=== PATIENT | female | born 1995 | race Caucasian/White ===

== ENCOUNTER 2018-10-14 09:16 | Emergency (ER) | payer BC, OTHER ==
[2018-10-14 09:19] VITALS: BP 131/85; PULSE 62; RESP 18; TEMP 98.4
--- NOTE | 2018-10-14 09:59 | XR ---
EXAMINATION TYPE: XR soft tissue neck DATE OF EXAM: 10/14/2018 COMPARISON: NONE HISTORY: Throat tightness that is worsening TECHNIQUE: Fundal and lateral views of the soft tissues of the neck FINDINGS: There is no prevertebral soft tissue swelling. Epiglottis and adenoids tissue is within nor mal limits. The supraglottic and infraglottic airway is maintained. Nasopharyngeal airway is maintain ed. Cervical spine vertebral bodies maintain normal vertebral body heights. Utilized portions of the upper lungs are unremarkable. No radiopaque foreign body in the course of the visualized esophagus or airway. IMPRESSION: Unremarkable soft tissue neck radiographs.
--- NOTE | 2018-10-14 10:30 | ED ---
General Adult HPI - General Chief complaint: ENT Stated complaint: Throat tightness Time Seen by Provider: 10/14/18 09:24 Source: patient, RN notes reviewed Mode of arrival: ambulatory Limitations: no limitations - History of Present Illness Initial comments: 23-year-old female presents to the emergency department for a chief complaint of sensation of intermittent throat pain and tightness. Patient states that over the past several weeks she has had episodes lasting several minutes where she feels like her throat is somewhat tight. Patient denies any respiratory distress whatsoever during these episodes. States her tongue also feels dry at times. Patient denies any difficulty swallowing solids or liquids. States that twice in the past few weeks she has felt lightheaded as well however at this time feels fine. Patient denies any fevers or chills. Denies any dental pain. Denies any difficulty eating. Patient has no other complaints at this time including shortness of breath, chest pain, abdominal pain, nausea or vomiting, headache, or visual changes. - Related Data Home Medications Medication Instructions Recorded Confirmed Cyanocobalamin [Vitamin B-12] 500 mcg PO DAILY 10/14/18 10/14/18 L.acidoph,Paracasei, B.lactis 1 cap PO DAILY 10/14/18 10/14/18 [Probiotic] Multivitamins, Thera [Multivitamin 1 tab PO DAILY 10/14/18 10/14/18 (formulary)] Tri-Linyah Control 1 tab PO HS 10/14/18 10/14/18 diphenhydrAMINE HCL [Benadryl] 50 mg PO ONCE PRN 10/14/18 10/14/18 Allergies Allergy/AdvReac Type Severity Reaction Status Date / Time cefprozil [From Cefzil] Allergy Rash/Hives Verified 10/14/18 09:24 Review of Systems ROS Statement: Those systems with pertinent positive or pertinent negative responses have been documented in the HPI. ROS Other: All systems not noted in ROS Statement are negative. Past Medical History Past Medical History: No Reported History History of Any Multi-Drug Resistant Organisms: None Reported Past Surgical History: Adenoidectomy Past Psychological History: No Psychological Hx Reported Smoking Status: Former smoker Past Alcohol Use History: Occasional Past Drug Use History: None Reported General Exam Limitations: no limitations General appearance: alert, in no apparent distress Head exam: Present: atraumatic, normocephalic, normal inspection Eye exam: Present: normal appearance, PERRL, EOMI. Absent: scleral icterus, conjunctival injection, periorbital swelling ENT exam: Present: normal exam, normal oropharynx (Uvula midline, no tonsillar exudates noted bilaterally. Patient does have mild postnasal drip noted.), mucous membranes moist (mucous membranes moist, tongue appears normal.), TM's normal bilaterally, normal external ear exam Neck exam: Present: normal inspection, full ROM. Absent: tenderness, meningismus, lymphadenopathy Respiratory exam: Present: normal lung sounds bilaterally. Absent: respiratory distress, wheezes, rales, rhonchi, stridor Cardiovascular Exam: Present: regular rate, normal rhythm, normal heart sounds. Absent: systolic murmur, diastolic murmur, rubs, gallop, clicks GI/Abdominal exam: Present: soft, normal bowel sounds. Absent: distended, tenderness, guarding, rebound, rigid Neurological exam: Present: alert, oriented X3, CN II-XII intact Psychiatric exam: Present: normal affect, normal mood Course Vital Signs 10/14/18 09:17 Temperature 98.4 F Pulse Rate 62 Respiratory 18 Rate Blood Pressure 131/85 O2 Sat by Pulse 99 Oximetry Medical Decision Making - Medical Decision Making 23-year-old female presents to the emergency department for a chief complaint of intermittent tightness in throat for several weeks. States this comes and goes. Denies any respiratory distress when this occurs. Denies any swelling of the lips or tongue but does state her tongue feels dry. Denies any difficulty swallowing solids or liquids. On exam oropharynx is patent. Uvula is midline. No tonsillar exudates. There is postnasal drip noted. Strep was negative. Soft tissue neck x-ray was obtained which was unremarkable. Epiglottis and adenoids are within normal limits. Airway is maintained. Discussed this with patient and her parents. At this time patient is stable for outpatient follow- up. However do recommend following up tomorrow with family doctor. Patient may need referral to a specialist for direct visualization by scope if this does not improve. Also discussed possibility of anxiety causing this because patient is anxious with this occurs. He will return if patient has any worsening symptoms, difficulty breathing, or difficulty swallowing solids or liquids. - Lab Data Lab Results 10/14/18 Range/Units 09:30 Group A Strep Rapid Negative (Negative) Disposition Clinical Impression: Pharyngitis Disposition: HOME SELF-CARE Condition: Good Instructions (If sedation given, give patient instructions): Pharyngitis (ED) Additional Instructions: Please follow up with primary care in 1-2 days. Please return to the emergency department if you have any worsening symptoms or are unable to swallow solids or liquids. Is patient prescribed a controlled substance at d/c from ED?: No Referrals: Gary West MD [Primary Care Provider] - 1-2 days Time of Disposition: 10:31
== END 2018-10-14 10:44 | disposition home or self-care (01) ==
LOC: EC 09:16
DX: J02.9 Acute pharyngitis, unspecified (principal); Z79.3 Long term (current) use of hormonal contraceptives; Z88.1 Allergy status to other antibiotic agents; Z87.891 Personal history of nicotine dependence
CPT/HCPCS: 70360; 87081; 87430; 99283

== ENCOUNTER → 2018-12-11 | Outpatient (CLI) | payer OTHER ==
--- NOTE | 2018-12-11 08:08 | US ---
EXAMINATION TYPE: US thyroid st tissue head/neck DATE OF EXAM: 12/11/2018 COMPARISON: NONE CLINICAL HISTORY: I88.9 Nonspecific lymphadenitis, unspecified. lymph nodes swell in neck, on and off , and can be tender, recently going through sinus infections TECHNIQUE/FINDINGS: Targeted ultrasound was performed of the areas of the palpable abnormalities in t he right and left neck. Corresponding the palpable abnormalities there are morphologically normal appearing lymph nodes bilat erally with fatty hilum and minimal vascularity. Largest on the right = 1.2 x 1.1 x 0.6cm Largest on the right = 0.8 x 0.6 x 0.2cm IMPRESSION: Morphologically normal-appearing nonenlarged bilateral cervical chain lymph nodes.
== END | disposition home or self-care (01) ==
LOC: RADUSWWP 07:30
PROVIDERS: ATTEND Family Medicine
DX: I88.9 Nonspecific lymphadenitis, unspecified (principal)
CPT/HCPCS: 76536

== ENCOUNTER → 2018-12-24 | Outpatient (CLI) | payer OTHER ==
--- NOTE | 2018-12-24 09:57 | MM ---
Reason for exam: clinical finding. Baseline mammogram. History: Patient is nulliparous. Taking hormonal contraceptives for 4 years beginning at age 19. Indicated problem(s): lump or thickening in the left breast. Physical Findings: Nurse Summary: Patient complains of left breast lump x 2 weeks with pain (nurse irene). MG 3D Diag Mammo W/Cad LT CC and MLO view(s) were taken of the left breast. The breast tissue is extremely dense which could obscure a lesion on mammography. These results were verbally communicated with the patient and result sheet given to the patient on 12/24/18. ASSESSMENT: Benign, BI-RAD 2 RECOMMENDATION: Routine screening mammogram of both breasts at age 40. Manage patient on a clinical basis.
--- NOTE | 2018-12-24 09:58 | USB ---
Reason for exam: clinical finding. History: Patient is nulliparous. Taking hormonal contraceptives for 4 years beginning at age 19. Indicated problem(s): lump or thickening in the left breast. Physical Findings: Nurse Summary: Patient complains of left breast lump x 2 weeks with pain (nurse mj). US Breast LT Left complete breast ultrasound includes all four quadrants, the retroareolar region and axilla. Finding demonstrates no cystic or solid lesion seen. Dense tissue. These results were verbally communicated with the patient and result sheet given to the patient on 12/24/18. ASSESSMENT: Incomplete: need additional imaging evaluation, BI-RAD 0 RECOMMENDATION: Follow-up diagnostic mammogram of the left breast.
== END | disposition home or self-care (01) ==
LOC: RADMAMWWP 08:48
PROVIDERS: ATTEND Family Medicine
DX: N63.20 Unspecified lump in the left breast, unspecified quadrant (principal)
CPT/HCPCS: 77061; 77065

== ENCOUNTER 2020-05-14 07:07 | Day surgery (SDC) | payer BC, OTHER ==
[2020-05-11 12:28] VITALS: BMI 25.0
[2020-05-14 07:28] VITALS: TEMP 97.9
[2020-05-14] MEDS: LACTATED RINGERS 1,000 ML IV SCH ×2 (07:48→07:59)
[2020-05-14] MEDS ORDERED: MIDAZOLAM 2 MG/2 ML VIAL ONE (08:00)
[2020-05-14] MEDS ORDERED: fentaNYL (PF) 50 MCG/ML 2 ML AMP ONE (08:00)
[2020-05-14] MEDS ORDERED: PROPOFOL 10 MG/ML 20 ML VIAL IV ONE (08:00)
--- NOTE | 2020-05-14 08:14 | P.PCN ---
Date of Procedure: 05/14/20 Procedure(s) Performed: BRIEF HISTORY: Patient is a 24-year-old, pleasant, white female scheduled for an upper endoscopy as a part of evaluation of long-standing history of chest tightness, intermittent dysphagia to solids and excessive burping and belching for the last 2 years duration. She has been on omeprazole 20 mg daily for one year with no help.. PROCEDURE PERFORMED: Esophagogastroduodenoscopy with biopsy. PREOPERATIVE DIAGNOSIS: Chest tightness/dysphagia/excessive belching IV sedation per anesthesia. PROCEDURE: After informed consent was obtained, the patient was brought into the endoscopy unit. IV sedation was administered by Anesthesia under continuous monitoring. Initially the Olympus GIF-140 video endoscope was inserted into the mouth. Esophagus intubated without any difficulty. It was gradually advanced into the stomach and duodenum and carefully examined. The bulb and the second part of the duodenum appeared normal. The scope at this time was withdrawn to the stomach, adequately insufflated with air, and upon careful examination, mucosa of the antrum, had mild gastritis and biopsies were done from this area. The body, cardia and the fundus appeared normal. The scope was then withdrawn into the esophagus. The GE junction was located at 39 cm from the incisors. The esophagus appeared normal. There were no erosions or ulcerations seen , biopsies were done from the mid and distal esophagus and the patient tolerated the procedure well. IMPRESSION: 1. Mild antral gastritis. 2. Normal-appearing esophagus with no evidence of esophagitis or esophageal stricture. RECOMMENDATIONS: The findings of this examination were discussed with the patient as well as a family. She was advised to follow with the biopsy results. She'll continue with omeprazole 20 mg twice daily for 6 weeks and follow antireflux measures. If she still remains symptomatic despite this approach she was advised to follow up in office for further workup..
[2020-05-14 08:15] VITALS: RESP 16
[2020-05-14 08:30] VITALS: BP 105/61; PULSE 60
== END 2020-05-14 08:48 | disposition home or self-care (01) ==
LOC: ORWHC2ENDO 07:07
PROVIDERS: ATTEND Internal Medicine Gastroenterology
DX: K29.50 Unspecified chronic gastritis without bleeding (principal); R13.10 Dysphagia, unspecified; K21.9 Gastro-esophageal reflux disease without esophagitis; Z79.899 Other long term (current) drug therapy
CPT/HCPCS: 81025; 88305; 43239; J2250; J3010; J2704

== ENCOUNTER → 2020-10-12 | Outpatient (CLI) | payer BC ==
--- NOTE | 2020-10-12 10:49 | ECHOF ---
Referral Reason:R01.1 Heart murmur MEASUREMENTS -------- HEIGHT: 170.2 cm WEIGHT: 72.6 kg BP: IVSd: 0.9 cm (0.6 - 1.1) LVIDd: 4.2 cm (3.9 - 5.3) LVPWd: 0.8 cm (0.6 - 1.1) EDV(Teich): 78 ml IVSs: 1.4 cm LVIDs: 2.5 cm LVPWs: 1.6 cm %IVS Thck: 53 % ESV(Teich): 22 ml EF(Teich): 72 % %FS: 41 % SV(Teich): 57 ml RVIDd: 2.6 cm (< 3.3) IVC: 21.15 mm LALs A4C: 4.7 cm LAAs A4C: 14.0 cm LAESV A-L A4C: 35 ml LAESV MOD A4C: 32 ml LALs A2C: 4.3 cm LAAs A2C: 13.4 cm LAESV A-L A2C: 36 ml LAESV MOD A2C: 32 ml LAESV(A-L): 37 ml LAESV Index (A-L): 20.30 ml/m Ao Diam: 2.0 cm (2.0 - 3.7) LA Diam: 3.3 cm (2.7 - 3.8) AV Cusp: 1.7 cm (1.5 - 2.6) EPSS: 0.3 cm MV E Neto: 1.22 m/s MV DecT: 221 ms MV Dec [place]: 5.5 m/s MV A Neto: 0.52 m/s MV E/A Ratio: 2.36 MV PHT: 64 ms LVOT Vmax: 1.08 m/s LVOT maxP.69 mmHg AV Vmax: 1.43 m/s AV maxP.24 mmHg TR Vmax: 2.16 m/s TR maxP.61 mmHg RAP: 5.00 mmHg RVSP: 23.61 mmHg MV EF SLOPE: 172.58 mm/s (70 - 150) MV EXCURSION: 22.28 mm (> 18.000) FINDINGS -------- Sinus rhythm. This was a technically adequate study. The left ventricular size is normal. Left ventricular wall thickness is normal. There is normal g lobal left ventricular contractility. Overall left ventricular systolic function is normal with, an EF between 55 - 60 %. The diastolic filling pattern is normal for the age of the patient 10.58. The right ventricle is normal in size. Normal LA size by volume 22+/-6 ml/m2. The right atrial size is normal. Interatrial and interventricular septum intact. The aortic valve is trileaflet and appears structurally normal. There is no evidence of aortic regu rgitation. There is no evidence of aortic stenosis. Mild mitral regurgitation is present. Trace tricuspid regurgitation present. There is no evidence of pulmonary hypertension. The right ventricular systolic pressure, as measured by Doppler, is 23.61mmHg. There is no pulmonic regurgitation present. The aortic root size is normal. The inferior vena cava is mildly dilated. There is no pericardial effusion. CONCLUSIONS -------- 1. The left ventricular size is normal. 2. Left ventricular wall thickness is normal. 3. There is normal global left ventricular contractility. 4. Overall left ventricular systolic function is normal with, an EF between 55 - 60 %. 5. The diastolic filling pattern is normal for the age of the patient 10.58 6. Mild mitral regurgitation is present. 7. Trace tricuspid regurgitation present. 8. The inferior vena cava is mildly dilated. MACHINE PACKAGING TECHNICIAN: Katey Ly RDCS
== END | disposition home or self-care (01) ==
LOC: RADECHMAIN 08:23
PROVIDERS: ATTEND Family Medicine
DX: I34.0 Nonrheumatic mitral (valve) insufficiency (principal); I78.8 Other diseases of capillaries; R01.1 Cardiac murmur, unspecified
CPT/HCPCS: 93306